=== PATIENT | male | born 2005 | race Caucasian/White ===

== ENCOUNTER 2024-01-06 09:25 | Emergency (ER) | payer OTHER ==
[2024-01-06 09:32] VITALS: BP 116/68; PULSE 64; RESP 20; TEMP 98.3; BMI 21.2
== END 2024-01-06 11:27 | disposition home or self-care (01) ==
LOC: JERFT 09:25
DX: S09.90XA Unspecified injury of head, initial encounter (principal); W21.04XA Struck by golf ball, initial encounter; Y93.53 Activity, golf
CPT/HCPCS: 70450-TC; 99284-25